=== PATIENT | female | born 1965 | race Caucasian/White ===

== ENCOUNTER → 2020-09-22 14:01 | Outpatient (BNVA) | payer BC, SELFPAY | PROVIDERS: PCP Nurse Practitioner Family; Referring Provider Nurse Practitioner Family; Visit Provider Surgery | DX: Z76.89 Persons encountering health services in other specified circumstances (principal) ==

== ENCOUNTER 2020-10-01 10:54 | Outpatient (REF) | payer BC, SELFPAY ==
[2020-10-01 12:23] LABS: Blood Urea Nitrogen 10 mg/dL (9-16); Estimated Glomerular Filt Rate > 60
== END 2020-10-01 10:55 | disposition home or self-care (01) ==
LOC: HO.LAB 10:54
PROVIDERS: PCP Nurse Practitioner Family; Visit Provider Surgery
DX: Z98.890 Other specified postprocedural states (principal); Z87.19 Personal history of other diseases of the digestive system
CPT/HCPCS: 82565; 84520

== ENCOUNTER 2020-10-06 09:12 | Outpatient (REF) | payer BC, SELFPAY ==
--- NOTE | 2020-10-06 09:15 | CT_ITS ---
EXAMINATION: CT ABDOMEN AND PELVIS WITHOUT CONTRAST CLINICAL INFORMATION: Abdominal pain. COMPARISON: None TECHNIQUE: Multidetector volumetric imaging was performed from the superior aspect of the liver through the pubic symphysis with oral contrast. Sagittal and coronal reformatted images were obtained on the technologist's workstation. This CT examination was performed using dose optimization techniques as appropriate, variously including the following: *Automated exposure control *Adjustment of mA and/or kV according to patient size (this includes techniques or standardized protocols for targeted exams where dose is matched to indication/reason for exam; i.e. extremities or head) *Use of iterative reconstruction technique DLP: 290 mGy-cm FINDINGS: LUNG BASES: Lung bases are unremarkable. The heart size is normal. LIVER, GALLBLADDER, AND BILIARY TREE: The liver is normal in size, shape, and attenuation. No focal hepatic lesion or biliary ductal dilatation is present. The gallbladder is unremarkable with no evidence of radiopaque gallstones, gallbladder wall thickening, or obvious pericholecystic inflammatory changes. PANCREAS: Unremarkable. SPLEEN: Unremarkable. ADRENAL GLANDS: Unremarkable. KIDNEYS AND URETERS: The kidneys are normal in size, shape, and attenuation. No hydronephrosis, hydroureter, or calculi seen. No perinephric stranding. BLADDER: Unremarkable. GASTROINTESTINAL TRACT: There is scattered oral contrast and stool seen throughout the colon without distention. This appendix is normal caliber. No free air or free fluid seen. ABDOMINAL WALL: No significant hernia is appreciated. LYMPH NODES: Normal. VASCULAR: Unremarkable. PELVIC VISCERA: The uterus is anteverted and appears unremarkable. No free fluid or pelvic mass seen. Scattered phleboliths are seen in the pelvis. OSSEOUS STRUCTURES: Unremarkable. CT/CT abdomen pelvis wo con IMPRESSION: No acute intra-abdominal process seen.
[2020-10-06] MEDS: Barium Sulfate Oral (Berry) 450 ML ORAL.SUSP 900 ML PO (11:13)
== END 2020-10-06 09:13 | disposition home or self-care (01) ==
LOC: HO.CT 09:12
PROVIDERS: Visit Provider Surgery
DX: R10.9 Unspecified abdominal pain (principal); Z98.890 Other specified postprocedural states; Z87.19 Personal history of other diseases of the digestive system
CPT/HCPCS: 74176

== ENCOUNTER 2025-07-23 21:15 | Inpatient (IN) | payer BC, SELFPAY ==
--- NOTE | 2025-07-23 | ECG_ITS ---
Test Reason : SOB Blood Pressure : */* mmHG Vent. Rate : 78 BPM Atrial Rate : 78 BPM P-R Int : 146 ms QRS Dur : 76 ms QT Int : 372 ms P-R-T Axes : 71 16 241 degrees QTcB Int : 424 ms Sinus rhythm with occasional Premature ventricular complexes Septal infarct , age undetermined Abnormal ECG No previous ECGs available Referred By: Briana Yepez Electronically Signed By: Luis Smith
--- NOTE | ~2025-07-23 | XR_ITS ---
CLINICAL HISTORY: cough, dyspnea Chest X-ray, 1 View COMPARISON: None provided FINDINGS: No consolidation. No pleural effusion. No pneumothorax. No cardiomegaly. No acute fracture. IMPRESSION: No acute findings. This document has been electronically signed by: Cj Skelton MD on 07/23/2025 22:47:10
--- OUTSIDE RECORDS SUMMARY | 2025-07-23 13:18 | XMS_ITS | Encounter Summary ---
Author Organization [facility] Address [address] [place] [address] [place], [place] [id number] Phone Care Team Providers Care Dobie Man Name Role Phone Marlene Galvez CALL CENTER TEAM LEADER Primary Care Provid er Reason for Referral * MRI/CAT Scan - Closed Specialty Diagnoses / Procedures Referred By Calos narvaez Referred To Contact Radiology Diagnoses Periumbilical pain Procedures CT Abdomen/Pelvis Trevor Christy MD [address] [place] [address] Phone: tel: fax: [email or web address] Referral ID Status Reason Start Date Expiration Date Visits Re quested Visits Authorized [id number] Closed 06/25/2025 06/25/2026 1 1 Reason for Visit * MRI/CAT Scan - Closed Specialty Diagnoses / Procedures Referred By Calos narvaez Referred To Contact Radiology Diagnoses Periumbilical pain Procedures CT Abdomen/Pelvis Trevor Christy MD [address] [place] [address] Phone: tel: fax: [email or web address] Referral ID Status Reason Start Date Expiration Date Visits Re quested Visits Authorized [id number] Closed 06/25/2025 06/25/2026 1 1 Encounter Details Date Type Department Care Team (Late st Contact Info) Description 07/23/2025 1:18 PM EDT Hospital Encounter [facility], Ri Scan - [facility] [address] [place] [address] Trevor Christy MD [address] [place] [address] [email or web address] Arrived Social History Tobacco Use Types Packs/Day Years Used Date Smoking Tobacco: Never Assessed Education Answer Date Recorded Are you interested in more education? Not on ti e 06/26/2025 Are you concerned about learning? Not on file 06/26/2025 No 06/26/2025 No 06/26/2025 Digital Access Answer Date Recorded No 06/26/2025 No 06/26/2025 Reliable internet access at home? Not on file 06/26/2025 Device with a working camera? Not on file Comments Unknown Sex and Gender Information Value Date Recorded Sex Assigned at Not on file Legal Sex Unknown 06/25/2025 4:14 PM EDT Gender Identity Not on file Sexual Orientation Not on file documented as of this encounter Plan of Treatment Pending Results Name Type Priority Associated Diagnoses Date /Time CT Abdomen/Pelvis Imaging Routine Periumbilical pain 07/23/2025 2:01 PM EDT Scheduled Orders Name Type Priority Associated Diagnoses Orde r Schedule CT Abdomen/Pelvis Imaging Routine Periumbilical pain As Needed for 1 Occurrences starting 07/23/2025 until 07/23/2025 documented as of this encounter Visit Diagnoses Diagnosis Periumbilical pain Abdominal pain, periumbilic documented in this encounter Administered Medications Inactive Administered Medications - up to 3 most recent administrations Medication Order MAR Action Action Date Dose Rate Site iohexoL (OMNIPAQUE) 9 mg iodine/mL 500 mL 500 mL, Oral, Once as needed, pre procedure/treatment, Starting on Mon07/23/25 at 1319, For 1 dose, Procedural Contrast/Med Active Now, Administer 30 minutes prior to exam. Given 07/23/2025 1:32 PM EDT 500 mL iohexoL (OMNIPAQUE-350) 350 mg iodine/mL solution 100 mL 100 mL, Intravenous, Once as needed, pre procedure/treatment, Starting on Mon07/23/25 at 1319, For 1 dose, Procedural Contrast/Med Active Now, Each mL contains 755 mg of iohexol equivalent to 350 mg of organic iodine. Given 07/23/2025 1:58 PM EDT 100 mL documented in this encounter Care Teams Dobie Man Relationship Specialty Start Date End Date Marlene Galvez NP [address] [place] [phone] [email or web address] PCP - General Nurse Practitioner 06/26/25 documented as of this encounter Additional Source Comments The information contained in this document represents components of the legal health record. It is not the complete legal health record.[facility]
[2025-07-23 21:16] VITALS: BP 134/93; PULSE 99; RESP 30; TEMP 36.6; O2SAT 90; BMI 20.7
[2025-07-23 21:39] LABS: MANUAL DIFF FLAG NO
[2025-07-23 21:40] LABS: Hematocrit 41.6 % (37.0-47.0); Hemoglobin 14.7 g/dl (12.0-16.0); Imm Gran Abs Auto 0.06 X10*3/uL (0.00-0.03); Imm Gran Pct Auto 0.4 % (0.0-0.4); Lymphocytes Absolute Auto 1.1 X10*3/uL (1.2-4.9); Mean Corpuscular HGB Conc 35.3 g/dl (31.0-35.0); Mean Corpuscular Hemoglobin 31.7 pg (27.0-33.0); Mean Corpuscular Volume 89.8 fL (80.0-98.0); NRBC Abs Auto 0.000 X10*3/uL (0.0-0.012); NRBC Pct Auto 0.0 /100WBC (0.0-0.2); Platelet Count 330 X10*3/uL (160-400); Red Blood Count 4.63 X10*6/uL (4.20-5.50); White Blood Count 14.6 X10*3/uL (4.8-10.8)
--- OUTSIDE RECORDS SUMMARY | 2025-07-23 21:44 | XMS_ITS | Encounter Summary ---
Author Organization [facility] Address [address] [place] [address] Care Team Providers Care Financial Cost Analyst Name Role Phone Willy Novoa MD Primary Care Provider [phone] Encounter Details Date Type Department Care Team Description 06/19/2013 Fabric Machine Operator Report Medical Records [address] [place] [address] Price Benjamin MD Social History Tobacco Use Types Packs/Day Years Used Date Smoking Tobacco: Former Cigarettes Q uit: 10/30/1998 Alcohol Use Standard Drinks/Week Comments Yes 0 (1 standard drink = 0.6 oz pur e alcohol) glass of wine q noc Sex Assigned at Date Recorded Not on file documented as of this encounter Plan of Treatment Not on file documented as of this encounter Visit Diagnoses Not on filedocumented in this encounter Care Teams Financial Cost Analyst Relationship Specialty Start Date End Date Willy Novoa MD [address] [place] [address] [phone] PCP - General 09/30/05 documented as of this encounter
--- OUTSIDE RECORDS SUMMARY | 2025-07-23 21:44 | XMS_ITS | Encounter Summary ---
Author Organization [facility] Address [address] [place] [address] Care Team Providers Care Worship Leader Name Role Phone Willy Novoa MD Primary Care Provider Encounter Details Date Type Department Care Team Description 03/01/2014 Pt. Non Urgent Medical Question Adult Medicine [facility] [address] [place] [address] [phone] Willy Novoa MD [address] [place] [address] [phone] Social History Tobacco Use Types Packs/Day Years Used Date Smoking Tobacco: Former Cigarettes Q uit: 10/30/1998 Alcohol Use Standard Drinks/Week Comments Yes 0 (1 standard drink = 0.6 oz pur e alcohol) glass of wine q noc Sex Assigned at Date Recorded Not on file documented as of this encounter Progress Notes * Marjorie Montemayor M.A. - 03/03/2014 7:39 AM EDTFrom: CHARITOBENNY To: Willy Novoa MD Sent: Sat March 01, 2014 3:59 PM Subject: Blood pressure Dr. Novoa, On January 01 my blood pressure was high. I have a follow up appointment on March 19. You asked me to get my blood pressure checked in between and I did so on February 27 it was 125/83. documented in this encounter Plan of Treatment Not on file documented as of this encounter Visit Diagnoses Not on filedocumented in this encounter Care Teams Worship Leader Relationship Specialty Start Date End Date Willy Novoa MD [address] [place] [phone] PCP - General 09/30/05 documented as of this encounter
--- OUTSIDE RECORDS SUMMARY | 2025-07-23 21:44 | XMS_ITS | Encounter Summary ---
Author Organization [facility] Address [address] [place] [address] Care Team Providers Care Manual Arts Teacher Name Role Phone Willy Novoa MD Primary Care Provider [phone] Encounter Details Date Type Department Care Team Description 10/27/2015 Pt. Non Urgent Medical Question Adult Medicine [facility] [address] [place] [address] [phone] Willy Novoa MD [address] [place] [address] [phone] Social History Tobacco Use Types Packs/Day Years Used Date Smoking Tobacco: Former Cigarettes Q uit: 10/30/1997 Comments:18 years x .5 ppd = 9 pack year history Alcohol Use Standard Drinks/Week Comments Yes 11.7 (1 standard drink = 0.6 oz pure alcohol) 2 glasses red wine nightly Sex Assigned at Date Recorded Not on file documented as of this encounter Progress Notes * Jaci Aguilera M.A. - 10/28/2015 8:38 AM ESTFrom: Deanna Chavis To: Willy Novoa MD Sent: 10/27/2015 8:34 PM EST Subject: Rash on my face Dr NOVOA, I saw Rossi yesterday for a rash on my face I have been battling for three weeks. Rossi thinksit's eczema and told me to use hydrocortisone .5 and put a referral into dermatology. I expressed great concern because......THIS IS MY FACE, and I'm very worried. Dermatology called me this morning and can see me in February. I can't express how upset and disappointed I am. I feel that certain people at [facility] could care less about patients. documented in this encounter Plan of Treatment Not on file documented as of this encounter Visit Diagnoses Not on filedocumented in this encounter Care Teams Manual Arts Teacher Relationship Specialty Start Date End Date Willy Novoa MD [address] [place] [phone] PCP - General 09/30/05 documented as of this encounter
--- OUTSIDE RECORDS SUMMARY | 2025-07-23 21:44 | XMS_ITS | Encounter Summary ---
Author Organization [facility] Address [address] [facility] [address] [place] [phone] Phone Care Team Providers Care Center Machine Set Up Operator Name Role Phone Marlene Galvez STEAM FITTER SUPERVISOR MAINTENANCE Primary Care Provid er Reason for Referral * MRI/CAT Scan - Closed Specialty Diagnoses / Procedures Referred By Calos narvaez Referred To Contact Radiology Diagnoses Periumbilical pain Procedures CT Abdomen/Pelvis Trevor Christy MD [address] [place] [address] Phone: tel: fax: mailto:[email or web address] Referral ID Status Reason Start Date Expiration Date Visits Re quested Visits Authorized [id number] Closed 06/25/2025 06/25/2026 1 1 Encounter Details Date Type Department Care Team (Late st Contact Info) Description 06/25/2025 Transcribe Orders Virtual Department [address] [place] [address] Trevor Christy MD [address] [place] [address] [email or web address] Periumbilical pain (Primary Dx) Social History Tobacco Use Types Packs/Day Years [...] Schedule CT Abdomen/Pelvis Imaging Routine Periumbilical pain Expected: 06/25/2025, Expires: 06/25/2026 documented as of this encounter Visit Diagnoses Diagnosis Periumbilical pain- Primary Abdominal pain, periumbilic documented in this encounter Care Teams Center Machine Set Up Operator Relationship Specialty Start Date End Date Marlene Galvez NP [address] [place] [phone] [email or web address] PCP - General Nurse Practitioner 06/26/25 documented as of this encounter Additional Source Comments The information contained in this document represents components of the legal health record. It is not the complete legal health record.[facility]
--- OUTSIDE RECORDS SUMMARY | 2025-07-23 21:44 | XMS_ITS | Clinical Summary ---
Author Organization [facility] Address [address] [facility] [address] [place] [phone] Phone Care Team Providers Care Food Consultant Name Role Phone Marlene Galvez [place] FORKLIFT MATERIAL HANDLER Primary Care Provid er Allergies No known active allergies Encounters Date Type Department Care Team Description 07/23/2025 1:18 PM EDT Hospital Encounter [address] [address] Trevor Christy MD Arrived 06/25/2025 Procedure Pass [address] [address] 06/25/2025 Transcribe Orders Virtual Department [address] [place] [phone] Trevor Christy MD Periumbilical pain (Primary Dx) from Last 3 Months Social History Tobacco Use Types Packs/Day Years [...] on file Sexual Orientation Not on file Plan of Treatment Not on file Medical Devices Not on file Insurance BLUE CROSS OUT OF STATE PPO BLUE CROSS OUT OF STATE PPO BLUE CROSS OUT OF STATE PPO BLUE CROSS OUT OF STATE PPO BLUE CROSS OUT OF STATE PPO BLUE CROSS OUT OF STATE PPO Care Teams Food Consultant Relationship Specialty Start Date End Date Marlene Galvez NP [address] [place] [phone] [email or web address] PCP - General Nurse Practitioner 06/26/25 Additional Source Comments The information contained in this document represents components of the legal health record. It is not the complete legal health record.[facility]
--- OUTSIDE RECORDS SUMMARY | 2025-07-23 21:44 | XMS_ITS | Encounter Summary ---
Author Organization [facility] Address [address] [facility] [address] [place] [phone] Phone Care Team Providers Care Cyber Crime Investigator Name Role Phone Marlene Galvez NP Primary Care Provid er Encounter Details Date Type Department Care Team (Late st Contact Info) Description 06/25/2025 Procedure Pass [facility], Ct Scan - [address] [address] Social History Tobacco Use Types Packs/Day Years [...] on filedocumented in this encounter Care Teams Cyber Crime Investigator Relationship Specialty Start Date End Date Marlene Galvez NP [address] [place] [phone] [email or web address] PCP - General Nurse Practitioner 06/26/25 documented as of this encounter Additional Source Comments The information contained in this document represents components of the legal health record. It is not the complete legal health record.[facility]
--- NOTE | 2025-07-23 21:45 | ED.SOB ---
HPI - SOB/Dyspnea General Chief Complaint: Dyspnea Stated Complaint: diff breathing Time Seen by Provider: 07/23/25 21:32 Source: patient Mode of arrival: ambulatory Limitations: no limitations History of Present Illness ED Provider: Dr. Briana Yepez HPI Narrative: Patient comes to the emergency room complaining of asthma exacerbation, dry cough, sore throat, chills. Patient states that she has history of asthma, has been using her albuterol without any significant relief. When patient arrived to the emergency room, initial oxygen saturation 88 to 89%. Patient was placed on 2 L nasal cannula in triage. Patient states that she has not smoked for over 35 years. Patient denies any fever. Denies chest pain. Related Data Home Medications ?Medication ?Instructions ?Recorded ?Confirmed fluticasone propionate 110 2 puff PO BID 09/22/20 10/09/20 mcg/actuation HFA aerosol inhaler Allergies Allergy/AdvReac Type Severity Reaction Status Date / Time acetaminophen Allergy Unknown Verified 07/23/25 21:21 ibuprofen Allergy Unknown Verified 07/23/25 21:21 Review of Systems Review of Systems: Constitutional : No Weight loss, No Fever, complaining of Chills, No Night Sweats, complaining of fatigue and generalized malaise ENT/Mouth : No Hearing loss, No Ear Pain, No Nasal Congestion, No Sinus Pain, No Hoarseness, complaining of sore throat, No Rhinorrhea, No Swallowing Difficulty Eyes: No Eye Pain, No Swelling, No Redness, No Foreign Body, No Discharge, No Vision Changes Cardiovascular : No Chest Pain, No SOB, No Dyspnea on Exertion, No Orthopnea, No Edema, No Palpitations Respiratory : Complaining of cough, wheezing, shortness of breath worse with exertion. Gastrointestinal : No Nausea, No Vomiting, No Diarrhea, No Constipation, No abdominal Pain, No Hematochezia, No Melena Genitourinary : no irregular bleeding, No Dysuria, No Urinary Frequency, No Hematuria, No Urinary Incontinence, No Urgency, No Flank Pain, No Urinary Flow Changes, No Hesitancy Musculoskeletal : No joint pain, No Myalgias, No Joint Swelling Skin : No Skin Lesions, No rash Neuro : No Weakness, No Numbness, No Paresthesias, No Loss of Consciousness, No Dizziness, No Headache Psych : No Anxiety/Panic, No Depression, No SI/HI/AH/VH, No Social Issues, Heme/Lymph: No Bruising, No Bleeding,No Lymphadenopathy Endocrine : No Polyuria, No Polydipsia, No Temperature Intolerance [facility] Past Medical History Medical History Asthma Surgical History History of sinus surgery History of umbilical hernia repair Social History Social History Alcohol intake: current Alcohol intake frequency: holidays/special occasions only Alcohol type: wine Smoked in Last 30 Days: No Use of substances other than those prescribed or required for medical reasons: No Advance Directives: No Advance Directives Information Provided: No Physical Exam Exam: Exam: Appearance: Alert. Oriented X3. Anxious Eyes: Pupils equal, round and reactive to light. ENT: Pharynx normal. Neck: Normal inspection. Neck supple. No lymph nodes noted. No crepitus CVS: Normal heart rate and rhythm. Pulses normal. Normal S1 and S2 Respiratory: Tachypneic, bilateral wheezing, moderate air movement, oxygen saturation 90% at room air sitting, improved to 95% with 2 L nasal cannula Abdomen: Soft and nontender. No rigidity. No distention. Skin: Skin warm and dry. Normal skin color. Normal skin turgor. Extremities: No lower extremity edema. No Lacerations. No Rash Neuro: Oriented X 3. No motor deficit. No sensory deficit. Moving all extremities. No slurred speech. CN 2 through 12 grossly intact Psych: calm, cooperative, anxious Vital Signs: Vital Signs: Last Vital Signs Temp 97.9 F 07/23/25 21:16 Pulse 77 07/23/25 22:14 Resp 21 H 07/23/25 22:14 BP 118/81 07/23/25 22:03 Pulse Ox 92 07/23/25 23:42 O2 Del Method Nasal Cannula 07/23/25 23:42 O2 Flow Rate 4 07/23/25 23:42 BMI result Body Mass Index 20.7 Course Course Course Narrative: Of note, I discussed with the patient that we will start with nebulization treatments, Solu-Medrol and magnesium. Patient's states that she is on ?planning on having an allergic reaction to the Solu-Medrol . Patient states that she is allergic to ?everything?. I asked the patient if she has any allergy to Solu-Medrol or any other steroids, patient states that very likely she is. Patient states that she is allergic to all the meds, even acetaminophen which make her sneeze violently. Patient will be premedicated with Pepcid and Benadryl, we will be also given Solu-Medrol and nebulization treatments that is mentioned above. Medications Administered Discontinued Medications Generic Name Dose Route Start Last Admin Trade Name Edward PRN Reason Stop Dose Admin Albuterol Sulfate 2.5 mg/ 0 mg 07/23/25 22:07 07/23/25 22:14 Albuterol/Ipratropium 3 ml INHALE 07/23/25 22:08 1 dose ONCE ONE Administration Diphenhydramine HCl 50 mg 07/23/25 21:44 07/23/25 21:55 Diphenhydramine Hcl 50 Mg/Ml Vial IVPUSH 07/23/25 21:45 50 mg ONCE ONE Administration Famotidine 20 mg 07/23/25 21:42 07/23/25 21:55 Famotidine/Pf 20 Mg/2 Ml Vial IVPUSH 07/23/25 21:43 20 mg ONCE ONE Administration Magnesium Sulfate 2 gm in 50 mls @ 150 mls/hr 07/23/25 21:33 07/23/25 22:15 Magnesium Sulfate/H2o IV 07/23/25 21:52 Infused ONCE ONE Infusion Methylprednisolone Sodium Succinate 125 mg 07/23/25 21:33 07/23/25 21:55 Methylprednisolone Sod Succ 125 Mg/2 Ml Vial IVPUSH 07/23/25 21:34 125 mg ONCE ONE Administration Medical Decision Making Medical Decision Making [facility] Narrative: My interpretation of labs: Patient's white blood cell count 14.6. Likely secondary to inhaled steroids at home. No significant abnormality in patient's chemistry, serology negative for influenza COVID and strep Chest x-ray does not show any acute abnormality After the above-mentioned medication, patient's lung exam has improved. However, patient's oxygen saturation dropped to 87% when she walks, patient states that she still feels pretty tight. Patient is currently on 2 L of oxygen, saturating 92% I discussed the above-mentioned with Dr. Rincon from the Medicine team, patient being admitted, patient agrees with plan Differential Diagnosis Differential Diagnoses: The differential diagnosis associated with the presentation includes (Asthma exacerbation, COVID, influenza, strep) Admission/Observation Consideration of admission/observation: Escalation of care including admission/observation considered (Given patient's initial presentation, need for oxygen, wheezing, observation/admission has been considered) Consult Healthcare Provider Management of the patient was discussed with: Hospitalist Lab Data MDM Lab Attestation statement: I reviewed the patient's lab results. 07/23/25 21:32 07/23/25 21:32 Labs: Lab Results 07/23/25 Range/Units 21:32 WBC 14.6 H (4.8-10.8) X10*3/uL RBC 4.63 (4.20-5.50) X10*6/uL Hgb 14.7 (12.0-16.0) g/dl Hct 41.6 (37.0-47.0) % MCV 89.8 (80.0-98.0) fL MCH 31.7 (27.0-33.0) pg MCHC 35.3 H (31.0-35.0) g/dl RDW 13.2 (11.0-16.0) % Plt Count 330 (160-400) X10*3/uL MPV 9.3 L (9.4-12.3) fL Immature Gran % (Auto) 0.4 (0.0-0.4) % Neut % (Auto) 84.3 H (45-73) % Lymph % (Auto) 7.5 L (20-40) % [place] % (Auto) 5.3 (2-11) % Eos % (Auto) 2.2 (0-4) % Baso % (Auto) 0.3 (0-2) % Lymph # (Auto) 1.1 L (1.2-4.9) X10*3/uL [place] # (Auto) 0.8 (0.1-1.2) X10*3/uL Eos # (Auto) 0.3 (0.0-0.4) X10*3/uL Baso # (Auto) 0.1 (0.0-0.2) X10*3/uL Abs Immat Gran (auto) 0.06 H (0.00-0.03) X10*3/uL Absolute Neuts (auto) 12.3 H (2.0-8.3) x10*3/uL Absolute Nucleated RBC 0.000 (0.0-0.012) X10*3/uL Nucleated RBC % (auto) 0.0 (0.0-0.2) /100WBC Sodium 139 (135-145) mmol/L Potassium 3.5 (3.3-5.1) mmol/L Chloride 105 (96-108) mmol/L Carbon Dioxide 22 (22-29) mmol/L Anion Gap 16 (12-20) BUN 6 L (9-16) mg/dL Creatinine 0.63 (0.5-1.4) mg/dL Estim Creat Clear Calc 83.0 Estimated GFR > 60 Random Glucose 146 H (60-115) mg/dL Calcium 9.4 (8.4-10.2) mg/dL Total Bilirubin 0.7 (0.0-1.0) mg/dL AST 28 (5-31) U/L ALT 18 (0-31) U/L Alkaline Phosphatase 83 (39-117) U/L Total Protein 7.7 (6.5-8.0) g/dL Albumin 4.8 (3.5-5.0) g/dL COVID-19 (ANTHONY) Negative (Negative) COVID-19 Clin Com See Note Influenza Type A (FARTUN) Negative (Negative) Influenza Type B (FARTUN) Negative (Negative) Influenza A & B Note See Note S. pyogenes GrpA FARTUN Negative (Negative) Independent Interpretation I performed an independent interpretation of an: Plain X-Ray Radiology Impression Discussion of test interpretation with radiology: I have reviewed the radiologist's reading. Radiologist Impression: No consolidation. No pleural effusion. No pneumothorax. No cardiomegaly. No acute fracture. IMPRESSION: No acute findings. Critical Care Time Critical Care Time Critical Care Time: Yes Total Critical Care Time: 60 Attestation: I have personally provided critical care time. Time includes review of lab data, radiology results, discussion with consultants, and monitoring for potential decompensation. Intervention performed as documented. Discharge Plan Discharge Clinical Impression: Asthma with exacerbation Patient Disposition: Admitted As Inpatient Print Language: Portuguese
--- OUTSIDE RECORDS SUMMARY | 2025-07-23 21:45 | XMS_ITS | Encounter Summary ---
Author Organization [facility] Address [address] [place] [address] Care Team Providers Care Baggage Agent Supervisor Name Role Phone Willy Novoa MD Primary Care Provider [phone] Encounter Details Date Type Department Care Team Description 10/10/2014 Hospital Medical Records [address] [place] [address] Otto Maddox MD Social History Tobacco Use Types Packs/Day [...] on filedocumented in this encounter Care Teams Baggage Agent Supervisor Relationship Specialty Start Date End Date iWlly Novoa MD [address] [place] [address] [phone] PCP - General 09/30/05 documented as of this encounter
[2025-07-23 21:50] LABS: IDNOW Serial# 55D5AD1C; Strep A Nucleic Acid Negative (Negative)
[2025-07-23] MEDS: Magnesium Sulfate/H2O 2 GM/50 ML PIGGYBACK IV (21:55)
[2025-07-23 21:56] LABS: Alanine Aminotransferase 18 U/L (0-31); Albumin Level 4.8 g/dL (3.5-5.0); Alkaline Phosphatase 83 U/L (39-117); Anion Gap 16 (12-20); Aspartate Amino Transferase 28 U/L (5-31); Blood Urea Nitrogen 6 mg/dL (9-16); Calcium 9.4 mg/dL (8.4-10.2); Carbon Dioxide 22 mmol/L (22-29); Chloride 105 mmol/L (96-108); Creatinine Clr Calc Pharmacy 83.0; Estimated Glomerular Filt Rate > 60; Potassium 3.5 mmol/L (3.3-5.1); Sodium 139 mmol/L (135-145); Total Protein 7.7 g/dL (6.5-8.0)
[2025-07-23 21:58] LABS: COVID-19 Test Negative (Negative); IDNOW Serial# 08D9AD1C; IDNOW Serial# 58CA691E; Influenza B2 Negative (Negative)
[2025-07-23 22:03] VITALS: BP 118/81; PULSE 67; RESP 22; O2SAT 96
[2025-07-23 22:14] VITALS: PULSE 77; RESP 21; O2SAT 95
[2025-07-23] MEDS: Albuterol Sulfate 2.5 MG, Albuterol/Iprat 2.5/0.5MG 3 ML 3 ML INHALE (22:14)
--- NOTE | 2025-07-23 23:33 | PC.NURSE ---
Pt ambulated to and from bathroom with steady gait. On room air after ambulating to BR pt noted to be satting 87-89%. 4LNC applied and pt up to 92%
[2025-07-23 23:41] VITALS: O2SAT 87
[2025-07-23 23:42] VITALS: O2SAT 92
[2025-07-24] VITALS (13 sets, daily range): BP systolic 105–137; BP diastolic 59–77; PULSE 75–97; RESP 16–23; TEMP 36.4–37.4; O2SAT 90–98; BMI 21.6; BMI 18.0
--- NOTE | 2025-07-24 00:05 | P.HPHOSP_ITS ---
History of Present Illness Date of Service: 07/24/25 Chief Complaint: sob 59-year-old female with a past medical history of asthma presented to the hospital with a chief complaint of shortness of breath. Patient reports over the past few days he has been having shortness of breath and cough. Also has sore throat. Reports subjective chills. Denies any chest pain or palpitations. Reports of shortness of with worsens on exertion. Denies any GI or symptoms. Review of all other systems is negative except mentioned above ER course: Per ER team, patient initially went to the urgent care and was noted to have hypoxic to 88%; subsequently sent to the ER for further evaluation. Noted to have bilateral wheezing concerning for acute asthma exacerbation. Chest x-ray showed no acute cardiopulmonary process. Given nebulizations and steroids. [facility] Medical History Asthma Surgical History History of sinus surgery History of umbilical hernia repair Social History Alcohol intake: current Alcohol intake frequency: holidays/special occasions only Alcohol type: wine Smoked in Last 30 Days: No Use of substances other than those prescribed or required for medical reasons: No Advance Directives: No Advance Directives Information Provided: No Meds Allergies Allergy/AdvReac Type Severity Reaction Status Date / Time acetaminophen Allergy Unknown Verified 07/23/25 21:21 ibuprofen Allergy Unknown Verified 07/23/25 21:21 Active Medications: Current Medications Acetaminophen (Acetaminophen 325 Mg Tablet) 650 mg PO Q6H PRN PRN Reason: Pain, Mild 1-3,fever,headache Albuterol/Ipratropium (Albuterol/Iprat 2.5/0.5mg 3 Ml Ampul.Neb) 3 ml INHALE Q4H PRN PRN Reason: Shortness of Breath/Wheezing Benzonatate (Benzonatate 100 Mg Capsule) 100 mg PO TID PRN PRN Reason: Cough Calcium Carbonate (Calcium Carbonate 750 Mg Tab.Chew) 750 mg PO Q4H PRN PRN Reason: Heartburn Enoxaparin Sodium (Enoxaparin Sodium 40 Mg/0.4 Ml Syringe) 40 mg SUBCUT Q24H TYRESE Magnesium Hydroxide (Milk Of Magnesia 30 Ml Oral.Susp) 30 ml PO DAILY PRN PRN Reason: Constipation Melatonin (Melatonin 3 Mg Tablet) 6 mg PO BEDTIME PRN PRN Reason: Insomnia Methylprednisolone Sodium Succinate (Methylprednisolone Sod Succ 40 Mg/Ml Vial) 40 mg IVPUSH Q6H TYRESE Sodium Chloride (0.9 % Sodium Chloride Flush 3 Ml Syringe) 3 ml IVFLUSH QSHIFT TYRESE Home Medications ?Medication ?Instructions ?Recorded ?Confirmed ?Last Taken ?Type fluticasone propionate 110 2 puff PO BID 09/22/2009/29 Unknown History mcg/actuation HFA aerosol inhaler Physical Exam 2 Vital Signs and Narrative: Vital Signs: Last Vital Signs Temp 97.9 F 07/23/25 21:16 Pulse 77 07/23/25 22:14 Resp 21 H 07/23/25 22:14 BP 118/81 07/23/25 22:03 Pulse Ox 92 07/23/25 23:42 O2 Del Method Nasal Cannula 07/23/25 23:42 O2 Flow Rate 4 07/23/25 23:42 BMI result Body Mass Index 20.7 Gen: Appears be in no acute distress HEENT: NCAT, Moist mucosa. Pulmonary: Bilateral wheezing present CVS: Normal S1-S2 Abdomen: BS+, Soft, Nontender Extremities: Warm well perfused Neuro: Alert and awake. Results Labs 07/23/25 21:32 07/23/25 21:32 Labs: Laboratory Results - last 24 hr 07/23/25 21:32 MCV 89.8 MCH 31.7 MCHC 35.3 H RDW 13.2 Plt Count 330 MPV 9.3 L Immature Gran % (Auto) 0.4 Neut % (Auto) 84.3 H Lymph % (Auto) 7.5 L [place] % (Auto) 5.3 Eos % (Auto) 2.2 Baso % (Auto) 0.3 Lymph # (Auto) 1.1 L [place] # (Auto) 0.8 Eos # (Auto) 0.3 Baso # (Auto) 0.1 Abs Immat Gran (auto) 0.06 H Absolute Neuts (auto) 12.3 H Absolute Nucleated RBC 0.000 Nucleated RBC % (auto) 0.0 Anion Gap 16 Estim Creat Clear Calc 83.0 Estimated GFR > 60 Random Glucose 146 H Calcium 9.4 Total Bilirubin 0.7 AST 28 ALT 18 Alkaline Phosphatase 83 Total Protein 7.7 Albumin 4.8 COVID-19 (ANTHONY) Negative COVID-19 Clin Com See Note Influenza Type A (FARTUN) Negative Influenza Type B (FARTUN) Negative Influenza A & B Note See Note S. pyogenes GrpA FARTUN Negative Assessment and Plan (1) Asthma with exacerbation: Qualifiers: Asthma persistence: unspecified Asthma severity: unspecified severity Qualified Code(s): J45.901 - Unspecified asthma with (acute) exacerbation Status: Acute Plan 59-year-old female with a past medical history of asthma presented to the hospital with a chief complaint of shortness of breath. Noted to be in acute asthma exacerbation. Acute asthma exacerbation: Acute hypoxic respiratory failure: Continue nebulization standing and p.r.n. Chest x-ray showed no acute cardiopulmonary process Continue Solu-Medrol Azithromycin Will obtain D-dimer Trending pulse oximetry when ready for discharge Supplemental oxygen p.r.n. DVT prophylaxis: Lovenox Code status: Full code Quality Stroke Does the patient have a stroke diagnosis?: No VTE Prior VTE?: No VTE Risk Level:: Medical - moderate - high VTE Device Contraindication: Treatment Not Indicated VTE Drug Contraindication: N/A - Med Ordered
[2025-07-24 01:08] LABS: D Dimer High Sensitivity 155 NG/ML
[2025-07-24] MEDS: Albuterol/Iprat 2.5/0.5MG 3 ML AMPUL.NEB INHALE ×5 (01:19→19:42)
[2025-07-24 04:11] LABS: Hematocrit 37.7 % (37.0-47.0); Hemoglobin 13.0 g/dl (12.0-16.0); Imm Gran Abs Auto 0.05 X10*3/uL (0.00-0.03); Imm Gran Pct Auto 0.4 % (0.0-0.4); Lymphocytes Absolute Auto 0.1 X10*3/uL (1.2-4.9); MANUAL DIFF FLAG SCAN; Mean Corpuscular HGB Conc 34.5 g/dl (31.0-35.0); Mean Corpuscular Hemoglobin 31.2 pg (27.0-33.0); Mean Corpuscular Volume 90.4 fL (80.0-98.0); NRBC Abs Auto 0.000 X10*3/uL (0.0-0.012); NRBC Pct Auto 0.0 /100WBC (0.0-0.2); Platelet Count 288 X10*3/uL (160-400); Red Blood Count 4.17 X10*6/uL (4.20-5.50); SCAN SMEAR FLAG 1; White Blood Count 11.6 X10*3/uL (4.8-10.8)
[2025-07-24 04:28] LABS: Alanine Aminotransferase 17 U/L (0-31); Albumin Level 4.3 g/dL (3.5-5.0); Alkaline Phosphatase 74 U/L (39-117); Anion Gap 15 (12-20); Aspartate Amino Transferase 22 U/L (5-31); Blood Urea Nitrogen 6 mg/dL (9-16); Calcium 8.8 mg/dL (8.4-10.2); Carbon Dioxide 18 mmol/L (22-29); Chloride 108 mmol/L (96-108); Creatinine Clr Calc Pharmacy 79.2; Estimated Glomerular Filt Rate > 60; Potassium 3.2 mmol/L (3.3-5.1); Sodium 138 mmol/L (135-145); Total Protein 6.9 g/dL (6.5-8.0)
--- NOTE | 2025-07-24 08:28 | PHA.MEDREC ---
Addendum entered by Josiah Burrows RPh 07/24/25 08:33: MED REC REVIEWED BY [facility] Original Note: Pharmacy Consult ? Medication Reconciliation Pharmacy has completed the medication reconciliation. Patient states she is only taking Albuterol HFA inhaler.
[2025-07-24 08:31] LABS: Magnesium 2.0 mg/dL (1.6-2.6)
[2025-07-24] MEDS: 0.9 % Sodium Chloride Flush 3 ML SYRINGE IVFLUSH ×2 (09:28→23:03)
[2025-07-24] MEDS: Potassium Chloride ER 20 MEQ TAB.ER.PRT 40 MEQ PO (09:29)
[2025-07-24 10:34] LABS: Hemoglobin A1C 130.2655 umol/L; Total Hemoglobin (HGBA1C) 3396.7851 umol/L
[2025-07-24 10:54] LABS: Glucose, Whole Blood 201 mg/dL (60-115)
[2025-07-24 14:45] LABS: Chlamydia pneumoniae PCR Not Detected (Not Detect.); Coronavirus 229E PCR Not Detected (Not Detect.); Coronavirus HKU1 PCR Not Detected (Not Detect.); Coronavirus NL63 PCR Not Detected (Not Detect.); Coronavirus OC43 PCR Not Detected (Not Detect.); RSV PCR Not Detected (Not Detect.); Rhino/Enterovirus PCR Detected (Not Detect.)
[2025-07-24 14:49] LABS: Influenza A H1 PCR Not Detected (Not Detect.); Influenza A H1-2009 PCR Not Detected (Not Detect.); Influenza A H3 PCR Not Detected (Not Detect.); SARS-CoV-2 PCR Not Detected (Not Detect.)
--- NOTE | 2025-07-24 16:11 | MHC.CM.PN ---
CM ATTEMPTED TO MEET WITH PT PT WITH NURSING STAFF CM TO RETURN
--- NOTE | 2025-07-24 16:15 | P.PNIM_ITS ---
Subjective Subjective Date of Service: 07/24/25 Interval History: Seen and examined this morning Follow-up for asthma exacerbation Patient reports shortness of breath, dry cough, attempted to wean supplemental oxygen, O2 saturations continued to be under 90%. Review of Systems Review of Systems: Yes all other systems are reviewed and are negative Constitutional Constitutional: Denies chills Cardiovascular Cardiovascular: Denies chest pain, Denies palpitations and Reports dyspnea on exertion Respiratory Respiratory: Reports cough and Reports dyspnea on exertion Endocrine Endocrine: Denies palpitations Physical Exam 2 Vital Signs: Vital Signs: Last Vital Signs Temp 98.4 F 07/24/25 10:53 Pulse 80 07/24/25 13:49 Resp 18 07/24/25 13:49 BP 116/77 07/24/25 10:53 Pulse Ox 90 L 07/24/25 12:06 O2 Del Method Room Air 07/24/25 12:06 O2 Flow Rate 3 07/24/25 10:53 BMI result Body Mass Index 21.6 Const: General: cooperative and comfortable Resp: Other: Scattered wheezing Effort & Inspection: normal respiratory effort, able to speak in complete sentences, no respiratory distress and no use of accessory muscles Cardio: Rate: regular rate GI: Palpation (GI): Soft to palpation Neuro: General: moves all extremities and CN's II-XI intact bilaterally Objective Data Active Medications Albuterol/Ipratropium (Albuterol/Iprat 2.5/0.5mg 3 Ml Ampul.Neb) 3 ml INHALE Q4H PRN PRN Reason: Shortness of Breath/Wheezing Last Admin: 07/24/25 05:19 Dose: 3 ml Documented By: GIL Albuterol/Ipratropium (Albuterol/Iprat 2.5/0.5mg 3 Ml Ampul.Neb) 3 ml INHALE RQ6H WHILE AWAKE TYRESE Last Admin: 07/24/25 13:48 Dose: 3 ml Documented By: SCAZALIALNancy Benzonatate (Benzonatate 100 Mg Capsule) 100 mg PO TID PRN PRN Reason: Cough Last Admin: 07/24/25 15:57 Dose: 100 mg Documented By: MICHAEL Calcium Carbonate (Calcium Carbonate 750 Mg Tab.Chew) 750 mg PO Q4H PRN PRN Reason: Heartburn Enoxaparin Sodium (Enoxaparin Sodium 40 Mg/0.4 Ml Syringe) 40 mg SUBCUT Q24H [facility] Last Admin: 07/24/25 01:15 Dose: Not Given Documented By: SELENE Non-Admin Reason: Patient Refused Magnesium Hydroxide (Milk Of Magnesia 30 Ml Oral.Susp) 30 ml PO DAILY PRN PRN Reason: Constipation Melatonin (Melatonin 3 Mg Tablet) 6 mg PO BEDTIME PRN PRN Reason: Insomnia Methylprednisolone Sodium Succinate (Methylprednisolone Sod Succ 40 Mg/Ml Vial) 40 mg IVPUSH Q6H [facility] Sodium Chloride (0.9 % Sodium Chloride Flush 3 Ml Syringe) 3 ml IVFLUSH QSHIFT [facility] Last Admin: 07/24/25 09:28 Dose: 3 ml Documented By: MICHAEL Labs 07/24/25 04:02 07/24/25 04:02 Labs: Laboratory Results - last 24 hr 07/23/25 07/24/25 07/24/25 21:32 00:55 04:02 MCV 89.8 90.4 MCH 31.7 31.2 MCHC 35.3 H 34.5 RDW 13.2 13.2 Plt Count 330 288 MPV 9.3 L 9.5 Immature Gran % (Auto) 0.4 0.4 Neut % (Auto) 84.3 H 97.7 H Lymph % (Auto) 7.5 L 1.2 L [place] % (Auto) 5.3 0.4 L Eos % (Auto) 2.2 0.1 Baso % (Auto) 0.3 0.2 Lymph # (Auto) 1.1 L 0.1 L [place] # (Auto) 0.8 0.1 Eos # (Auto) 0.3 0.0 Baso # (Auto) 0.1 0.0 Abs Immat Gran (auto) 0.06 H 0.05 H Absolute Neuts (auto) 12.3 H 11.4 H Absolute Nucleated RBC 0.000 0.000 Nucleated RBC % (auto) 0.0 0.0 Smear Tech's Comments VERIFIED D-Dimer High Sensitivty 155 Anion Gap 16 15 Estim Creat Clear Calc 83.0 79.2 Estimated GFR > 60 > 60 POC Glucose Random Glucose 146 H 355 H* Estimat Average Glucose 117 Hemoglobin A1c % 5.7 Calcium 9.4 8.8 D Magnesium 2.0 Total Bilirubin 0.7 0.5 AST 28 22 ALT 18 17 Alkaline Phosphatase 83 74 Total Protein 7.7 6.9 Albumin 4.8 4.3 Respiratory Panel [place] Adenovirus (Rapid PCR) B.pert (TEM-PCR) B.parapertussis DNA PCR C. pneumoniae DNA (PCR) Coronavirus OC43 (PCR) Coronavirus HKU1 (PCR) Coronavirus 229E (PCR) COVID-19 (ANTHONY) Negative COVID-19 Clin Com See Note Coronavirus NL63 (PCR) Human Metapneumovir PCR Influenza Type A (FARTUN) Negative Influenza A (RT-PCR) Influenza A (H1) PCR Influ A (H1/09) PCR Influenza A (H3) PCR Influenza Type B (FARTUN) Negative Influenza B (RT-PCR) Influenza A & B Note See Note M. pneumoniae (PCR) Parainfluenza 1 (PCR) Parainfluenza 2 (PCR) Parainfluenza 3 (PCR) Parainfluenza 4 (PCR) RSV (PCR) Entero/Rhino (PCR) SARS-CoV-2 RNA (RT-PCR) S. pyogenes GrpA FARTUN Negative 07/24/25 07/24/25 10:43 13:41 MCV MCH MCHC RDW Plt Count MPV Immature Gran % (Auto) Neut % (Auto) Lymph % (Auto) [place] % (Auto) Eos % (Auto) Baso % (Auto) Lymph # (Auto) [place] # (Auto) Eos # (Auto) Baso # (Auto) Abs Immat Gran (auto) Absolute Neuts (auto) Absolute Nucleated RBC Nucleated RBC % (auto) Smear Tech's Comments D-Dimer High Sensitivty Anion Gap Estim Creat Clear Calc Estimated GFR POC Glucose 201 H Random Glucose Estimat Average Glucose Hemoglobin A1c % Calcium Magnesium Total Bilirubin AST ALT Alkaline Phosphatase Total Protein Albumin Respiratory Panel [place] See Note Adenovirus (Rapid PCR) Not Detected B.pert (TEM-PCR) Not Detected B.parapertussis DNA PCR Not Detected C. pneumoniae DNA (PCR) Not Detected Coronavirus OC43 (PCR) Not Detected Coronavirus HKU1 (PCR) Not Detected Coronavirus 229E (PCR) Not Detected COVID-19 (ANTHONY) COVID-19 Clin Com Coronavirus NL63 (PCR) Not Detected Human Metapneumovir PCR Not Detected Influenza Type A (FARTUN) Influenza A (RT-PCR) Not Detected Influenza A (H1) PCR Not Detected Influ A (H1/09) PCR Not Detected Influenza A (H3) PCR Not Detected Influenza Type B (FARTUN) Influenza B (RT-PCR) Not Detected Influenza A & B Note M. pneumoniae (PCR) Not Detected Parainfluenza 1 (PCR) Not Detected Parainfluenza 2 (PCR) Not Detected Parainfluenza 3 (PCR) Not Detected Parainfluenza 4 (PCR) Not Detected RSV (PCR) Not Detected Entero/Rhino (PCR) Detected A SARS-CoV-2 RNA (RT-PCR) Not Detected S. pyogenes GrpA FARTUN Assessment and Plan (1) Asthma with exacerbation: Status: Acute Plan This is a 59-year-old female with a past medical history of asthma presented to the hospital with a chief complaint of shortness of breath. Noted to be in acute asthma exacerbation. Acute hypoxic respiratory failure due acute asthma exacerbation exacerbated by rhino/enterovirus RPP + for entero/rhinovirus Continue nebulization standing and p.r.n. Continue Solu-Medrol ddimer negative Continue supplemental oxygen, attempted to wean this afternoon but oxygen saturation dropped to 88/89 % on room air DVT prophylaxis: Lovenox Code status: Full code Quality Stroke Does the patient have a stroke diagnosis?: No VTE Prior VTE?: No VTE Risk Level:: Medical - moderate - high VTE Device Contraindication: Treatment Not Indicated VTE Drug Contraindication: N/A - Med Ordered
[2025-07-25 03:59] VITALS: BP 93/61; PULSE 70; RESP 16; TEMP 36.8; O2SAT 95
[2025-07-25 07:23] VITALS: BP 119/62; PULSE 63; RESP 18; TEMP 37.2; O2SAT 98
[2025-07-25] MEDS: Albuterol/Iprat 2.5/0.5MG 3 ML AMPUL.NEB INHALE (07:38)
[2025-07-25 07:41] VITALS: PULSE 64; RESP 16; O2SAT 99
--- NOTE | 2025-07-25 07:56 | PM.DS ---
DS: Providers Provider Date of Service: 07/25/25 Date of admission: 07/23/25 23:37 Date of discharge: 07/25/25 Primary care physician: YANIRA Vázquez DS: Diagnosis Discharge Diagnosis (1) Asthma with exacerbation: Status: Acute DS: Summary Hospital Course Hospital Course: Chief Complaint: sob 59-year-old female with a past medical history of asthma presented to the hospital with a chief complaint of shortness of breath. Patient reports over the past few days he has been having shortness of breath and cough. Also has sore throat. Reports subjective chills. Denies any chest pain or palpitations. Reports of shortness of with worsens on exertion. Denies any GI or symptoms. Review of all other systems is negative except mentioned above ER course: Per ER team, patient initially went to the urgent care and was noted to have hypoxic to 88%; subsequently sent to the ER for further evaluation. Noted to have bilateral wheezing concerning for acute asthma exacerbation. Chest x-ray showed no acute cardiopulmonary process. Given nebulizations and steroids. hospital course: She was admitted for asthma exacerbation, likely trigered by entero/rhinovirus, sating 88% on room air and failed weaning initially, she was admitted and treated with IV Steroid, bronchodialtros by Neb. She has now recovered well and sating 98% on room air, no respiratory distress. ASthma exacerbation likely triggered by rhinovirus. Of note she had hyperglycemia with glucose up to 201, likely from steroid and stress, hemoglobin A1C is 5.5 Final diagnosis: asthma exacerbation triggered by rhinovis Time Attestation Discharge Coordination Time (in mins): 45 Quality: Safe Use of Opioids Does Pt have an Active Cancer Diagnosis on the Problem List?: No Quality: Stroke Does the patient have a stroke diagnosis?: No Physical Exam Exam: Exam: General: AO X 3, no acute distress Resp: CTA bilateral CVS: S1,S2,RRR GI: +BS, NT, no distention Skin: No rash Neuro: motor grossly intact Psych: appropriate affect Vital Signs: Vital Signs: Last Vital Signs Temp 98.9 F 07/25/25 07:23 Pulse 64 07/25/25 07:41 Resp 16 07/25/25 07:41 BP 119/62 07/25/25 07:23 Pulse Ox 98 07/25/25 07:23 O2 Del Method Room Air 07/25/25 07:23 O2 Flow Rate 3 07/24/25 10:53 BMI result Body Mass Index 18.0 DS: Data Data Completed and Pending Labs on day of discharge: Laboratory Results - last 24 hr 07/24/25 07/24/25 07/24/25 04:02 10:43 13:41 POC Glucose 201 H Estimat Average Glucose 117 Hemoglobin A1c % 5.7 Magnesium 2.0 Respiratory Panel Schafer See Note Adenovirus (Rapid PCR) Not Detected B.pert (TEM-PCR) Not Detected B.parapertussis DNA PCR Not Detected C. pneumoniae DNA (PCR) Not Detected Coronavirus OC43 (PCR) Not Detected Coronavirus HKU1 (PCR) Not Detected Coronavirus 229E (PCR) Not Detected Coronavirus NL63 (PCR) Not Detected Human Metapneumovir PCR Not Detected Influenza A (RT-PCR) Not Detected Influenza A (H1) PCR Not Detected Influ A (H1/09) PCR Not Detected Influenza A (H3) PCR Not Detected Influenza B (RT-PCR) Not Detected M. pneumoniae (PCR) Not Detected Parainfluenza 1 (PCR) Not Detected Parainfluenza 2 (PCR) Not Detected Parainfluenza 3 (PCR) Not Detected Parainfluenza 4 (PCR) Not Detected RSV (PCR) Not Detected Entero/Rhino (PCR) Detected A SARS-CoV-2 RNA (RT-PCR) Not Detected Discharge Plan Discharge Anticipated Discharge Date/Time: 07/25/25 07:56 Patient Disposition: Home, Self-Care Discharge Diagnosis: Asthma exacerbation Referrals: Marlene Galvez FNP [Primary Care Provider, Family Practice] - 1 Week Discharge Medications: Continued albuterol sulfate 90 mcg/actuation HFA aerosol inhaler 2 puff INHALATION Q4H PRN (Reason: Shortness Of Breath Or Wheezing) Diet: Advance to usual diet Activity on Discharge: As tolerated Print Language: Hungarian Care Plan Goals: recovery from asthma exacerbation Health Concerns: asthma Plan of Treatment: take Prednisone as directed Follow up with your doctor in a week, call for appointment Assessment: see above
--- NOTE | 2025-07-25 09:07 | MHC.CM.PN ---
CM met with Patient at bedside. Patient lives in a house with her /HCP/Trevor, who will transport at time of dc.Home self care is Patient's goal and CM has initiated and will follow for dc Planning. PCP/INTELLECTUAL PROPERTY COUNSEL is Marlene Galvez.
--- NOTE | 2025-07-25 10:18 | MHC.CM.PN ---
Patient has been medically cleared for dc to home today, self care.
[2025-07-25 11:05] VITALS: BP 110/70; PULSE 71; RESP 18; TEMP 36.2; O2SAT 93
--- NOTE | 2025-07-26 12:06 | P.CDIM_ITS ---
PROVIDER RESPONSE TEXT: To clarify, the appropriate diagnosis supported by the clinical indicators: Moderate persistent QUERY TEXT: PHYSICIAN'S DOCUMENTATION REQUEST Date of Query: 07/25/2025 09:47 AM EDT Patient Name: BENNY MCNEILL Admit Date: 07/24/2025 Dear Ricky Benton MD, A review of the medical record indicates additional documentation may be needed. Please review below and update the documentation accordingly. Clinical indicators: Progress note 07/24/2025 - Asthma exacerbation Patient reports shortness of breath, dry cough, DIEGO. Acute hypoxic respiratory failure due to acute asthma exacerbation by rhino/enterovirus. Nebulization standing and p.r.n. Continue Solu-Medrol ddimer negative Based on the above, please clarify in the Progress Notes further specificity regarding the type and acuity of the asthma: Mild intermittent Mild persistent Moderate persistent Severe persistent Exercise induced Other (explain) Clinically unable to determine (explain) Thank you, Nu Rodríguez, CCS, CDIS Use of terms such as suspected, likely, concern for, or probable (associated with a specific diagnosis that is being evaluated, monitored, or treated as if it exists) are acceptable and can be coded in the inpatient setting, when documented at the time of discharge. Please use your independent medical judgment in providing your response. THIS QUERY IS PART OF THE PERMANENT MEDICAL RECORD
== END 2025-07-25 13:45 | disposition home or self-care (01) | DRG 141 ==
LOC: HO.ED 21:42 → HO.EDOVER 07-24 00:02 → HO.IMC 07-24 14:45
PROVIDERS: Physician Assistant Medical; Admitting Provider Hospitalist; Emergency Provider Emergency Medicine; PCP Nurse Practitioner Family; Visit Provider Internal Medicine
DX: J45.41 Moderate persistent asthma with (acute) exacerbation (principal); J96.01 Acute respiratory failure with hypoxia; B97.10 Unspecified enterovirus as the cause of diseases classified elsewhere; B97.89 Other viral agents as the cause of diseases classified elsewhere; Z20.822 Contact with and (suspected) exposure to COVID-19; Z79.899 Other long term (current) drug therapy
CPT/HCPCS: 36415; 71045; 80053; 82947; 83036; 83735; 85025; 85379; 87502; 87633; 87635; 87651; 93005; 94640; 99285; J1200; J1308; J1650; J2919; J3475

== ENCOUNTER → 2025-07-23 21:22 | Outpatient (BNV) | payer BC, SELFPAY | PROVIDERS: Emergency Provider Emergency Medicine; PCP Nurse Practitioner Family; Visit Provider Radiology Diagnostic Radiology | DX: R05.9 Cough, unspecified (principal); R06.00 Dyspnea, unspecified | CPT/HCPCS: 71045 ==

== ENCOUNTER → 2025-07-23 21:51 | Outpatient (BNV) | payer BC, SELFPAY | PROVIDERS: Admitting Provider Hospitalist; Emergency Provider Emergency Medicine; PCP Nurse Practitioner Family; Visit Provider Internal Medicine Cardiovascular Disease | DX: R94.31 Abnormal electrocardiogram [ECG] [EKG] (principal); R06.02 Shortness of breath | CPT/HCPCS: 93010 ==

== ENCOUNTER → 2025-07-23 23:37 | Outpatient (BNV) | payer BC, SELFPAY | PROVIDERS: Admitting Provider Hospitalist; Emergency Provider Emergency Medicine; PCP Nurse Practitioner Family; Visit Provider Physician Assistant Medical | DX: J45.901 Unspecified asthma with (acute) exacerbation (principal) | CPT/HCPCS: 99223; 99499 ==

== ENCOUNTER 2025-10-29 13:51 | Outpatient (REF) | payer BC, SELFPAY ==
--- NOTE | ~2025-10-29 | CT_ITS ---
EXAMINATION: CT CHEST WITHOUT IV CONTRAST INDICATION: Abnormal finding of lung field COMPARISON: There are no prior studies available for comparison. TECHNIQUE: Helical CT scan of the chest was performed without intravenous contrast. Coronal and sagittal reformatted images were generated and reviewed. This CT exam was performed with one or more of the following dose reduction techniques: automated exposure control, adjustment of the mA and/or kV according to patient size, use of iterative reconstruction technique. DLP: 86 mGy-cm CHEST: THYROID: The thyroid is unremarkable. LUNGS: There are scattered calcified and noncalcified nodules measuring up to 2 mm in size in the right upper lobe (series 5, image 25), in the left upper lobe (series 5, image 69), and in the left lower lobe (series 5, image 89). There are no focal airspace opacities. MEDIASTINUM: There is no mediastinal lymphadenopathy. FIDEL: Evaluation of the hilar regions is limited by lack of intravenous contrast material. CARDIOVASCULATURE: The heart is normal in size. There is no pericardial effusion. The thoracic aorta is normal in caliber. DEGREE OF CORONARY CALCIFICATION: none PLEURA: There is no pleural effusion. No pneumothorax. MAIN AIRWAYS: The mainstem bronchi and proximal branches are patent. AXILLA: There is no axillary lymphadenopathy. BONES AND SOFT TISSUES: Unremarkable UPPER ABDOMEN: The visualized portions of the liver, spleen, and adrenals have an unremarkable unenhanced appearance. CT/CT chest wo IV con IMPRESSION: Scattered bilateral pulmonary nodules measuring up to 2 mm in size. Please see Fleischner Society guidelines below. Fleischner Criteria for pulmonary nodule follow-up SOLID NODULES: Low risk patient: <6mm: no follow-up 6-8mm: 6 month follow-up CT >8mm: PET/Biopsy/ 3 month follow-up CT High risk patient: <6mm: 12 month follow-up CT 6-8mm: 6 month follow-up CT >8mm: PET/Biopsy/ 3 month follow-up CT SUB-SOLID/GROUNDGLASS NODULES: All patients: > or = 6mm: 6 month follow-up CT *Please note that in patients in the following categories, the Fleischner criteria do not apply: Immunocompromised, lung cancer screening population, age below 35, and patients with known malignancy Electronically signed by: Hakeem Mota MD 10/29/2025 02:38 PM LAURIE
--- OUTSIDE RECORDS SUMMARY | 2025-10-29 15:09 | XMS_ITS | Encounter Summary ---
Author Organization [facility] Address [address] [place] [phone] Phone Care Team Providers Care Grocery Buyer Name Role Phone Marlene Galvez SIGHT EFFECTS SPECIALIST Primary Care Provid er Reason for Referral * MRI/CAT Scan - Closed Specialty Diagnoses / Procedures Referred By Calos narvaez Referred To Contact Radiology Diagnoses Periumbilical pain Procedures CT Abdomen/Pelvis Trevor Christy MD [address] [place] [address] Phone: tel: fax: [email or web address] Referral ID Status Reason Start Date Expiration Date Visits Re quested Visits Authorized [id number] Closed 06/25/2025 06/25/2026 1 1 Encounter Details Date Type Department Care Team (Late st Contact Info) Description 06/25/2025 Transcribe Orders Virtual Department [address] [place] [address] Trevor Christy MD [address] [place] [address] [email or web address] Periumbilical pain (Primary Dx) Social History Tobacco [...] on file documented as of this encounter Results * CT ABDOMEN/PELVIS WITH CONTRAST (07/23/2025 2:01 PM EDT) MGB IMG RECOMMENDATION COMMENT abdominal pain; Scattered nodules left lower lobe; mucus plugging left lower lobe [facility] Anatomical Region Laterality Modality Abdomen, Pelvis Computed Tomogra phy 07/24/2025 4:24 PM EDT Impressions 07/24/2025 4:43 PM EDT 1. No CT findings to explain abdominal pain. 2. Scattered nodules and mucus plugging within the left lower lobe, likely infectious/inflammatory or aspiration. RECOMMENDATION: Follow-up chest CT in 2-3 months. Narrative 07/24/2025 4:[address] ABDOMEN/PELVIS WITH CONTRAST Referring clinician's provided indication for this examination in Epic: Outside Radiology Order; periumbilical pain TECHNIQUE: Multidetector-row CT of the abdomen and pelvis was performed after administration of intravenous contrast using tailored dose modulation techniques. Images were reconstructed in the axial, coronal, and sagittal planes. COMPARISON: None FINDINGS: Lower chest: No consolidation or pleural effusions. Scattered nodules and mucus plugging within the left lower lobe. Liver: No suspicious focal lesions. Biliary: No biliary ductal dilatation. Noninflamed gallbladder. Spleen: No splenomegaly or focal lesions. Pancreas: No masses or ductal dilatation. Adrenal glands: No nodules. Kidneys/ureters: No solid masses or hydronephrosis. No stones. Bowel: Right hemicolectomy. No dilation or wall thickening. Colonic diverticulosis without diverticulitis. Peritoneum/retroperitoneum: No masses, free air, or fluid. Lymph nodes: No lymphadenopathy. Pelvic organs/bladder: No masses. Vessels: No abdominal aortic aneurysm. Atherosclerotic calcifications. Bones/soft tissues: Osseous degenerative changes. No destructive osseous lesions. Procedure Note Issac Carlson DO, MPH - 07/24/2025 CT ABDOMEN/PELVIS WITH CONTRAST Referring clinician's provided indication for this examination in Epic:Outside Radiology Order; periumbilical pain TECHNIQUE: Multidetector-row CT of the abdomen and pelvis was performedafter administration of intravenous contrast using tailored dosemodulation techniques. Images were reconstructed in the axial, coronal,and sagittal planes. COMPARISON: None FINDINGS: Lower chest: No consolidation or pleural effusions. Scattered nodules andmucus plugging within the left lower lobe. Liver: No suspicious focal lesions. Biliary: No biliary ductal dilatation. Noninflamed gallbladder. Spleen: No splenomegaly or focal lesions. Pancreas: No masses or ductal dilatation. Adrenal glands: No nodules. Kidneys/ureters: No solid masses or hydronephrosis. No stones. Bowel: Right hemicolectomy. No dilation or wall thickening. Colonicdiverticulosis without diverticulitis. Peritoneum/retroperitoneum: No masses, free air, or fluid. Lymph nodes: No lymphadenopathy. Pelvic organs/bladder: No masses. Vessels: No abdominal aortic aneurysm. Atherosclerotic calcifications. Bones/soft tissues: Osseous degenerative changes. No destructive osseouslesions. IMPRESSION: 1. No CT findings to explain abdominal pain. 2. Scattered nodules and mucus plugging within the left lower lobe,likely infectious/inflammatory or aspiration. RECOMMENDATION: Follow-up chest CT in 2-3 months. Trevor Christy MD IMG CT ABD/PELVIS Final Result documented in this encounter Visit Diagnoses Diagnosis Periumbilical pain- Primary Abdominal pain, periumbilic Periumbilical pain Abdominal pain, periumbilic documented in this encounter Care Teams Grocery Buyer Relationship Specialty Start Date End Date Marlene Galvez NP [email or web address] PCP - General Nurse Practitioner 06/26/25 documented as of this encounter Additional Source Comments The information contained in this document represents components of the legal health record. It is not the complete legal health record.[facility]
--- OUTSIDE RECORDS SUMMARY | 2025-10-29 15:09 | XMS_ITS | Encounter Summary ---
Author Organization [facility] Address [address] [place] [phone] Phone Care Team Providers Care Corporate Strategy Associate Name Role Phone Marlene Galvez NP Primary Care Provid er Encounter Details Date Type Department Care Team (Late st Contact Info) Description 06/25/2025 Procedure Pass [facility], Ct Scan - [address] [address] Social History Tobacco Use Types Packs/Day Years [...] on filedocumented in this encounter Care Teams Corporate Strategy Associate Relationship Specialty Start Date End Date Marlene Galvez NP [email or web address] PCP - General Nurse Practitioner 06/26/25 documented as of this encounter Additional Source Comments The information contained in this document represents components of the legal health record. It is not the complete legal health record.[facility]
--- OUTSIDE RECORDS SUMMARY | 2025-10-29 15:09 | XMS_ITS | Clinical Summary ---
Author Organization [facility] Address [address] [place] [phone] Phone Care Team Providers Care Keyboarding Teacher Name Role Phone Marlene Galvez STAFF DEVELOPMENT COORDINATOR Primary Care Provid er Allergies No known active allergies Social History Tobacco Use Types Packs/Day Years [...] CROSS OUT OF STATE PPO Care Teams Keyboarding Teacher Relationship Specialty Start Date End Date Marlene Galvez NP PCP - General Nurse Practitioner 06/26/25 Additional Source Comments The information contained in this document represents components of the legal health record. It is not the complete legal health record.[facility]
== END 2025-10-29 13:52 | disposition home or self-care (01) ==
LOC: HO.CT 13:51
PROVIDERS: PCP Nurse Practitioner Family; Visit Provider Family Medicine
DX: R91.8 Other nonspecific abnormal finding of lung field (principal)
CPT/HCPCS: 71250

== ENCOUNTER → 2025-10-29 13:58 | Outpatient (BNV) | payer BC, SELFPAY | PROVIDERS: PCP Nurse Practitioner Family; Visit Provider Radiology Diagnostic Radiology | DX: R91.8 Other nonspecific abnormal finding of lung field (principal) | CPT/HCPCS: 71250 ==